=== PATIENT | female | born 1935 | race Caucasian/White ===

== ENCOUNTER 2017-06-29 11:23 | Emergency (ER) | payer MEDICARE, OTHER ==
--- NOTE | 2017-06-29 11:44 | Emergency Department Record ---
History of Present Illness - General Chief complaint: Extremity Problem Stated complaint: right wrist injury Time Seen by Provider: 06/29/17 11:37 Source: Patient Mode of Arrival: Ambulatory Limitations: No limitations - History of Present Illness Initial comments: pt fell on an outstretched hand injuring r wrist Complaint: Extremity pain Onset/Timin -: Minutes(s) Location: Right, Other History of Same: No Radiation: Distal Severity scale (1-10): 10 Quality: Aching Consistency: Constant Improves with: Nothing Worsens with: Other Associated Symptoms: Denies other symptoms - Related Data Home Medications Medication Instructions Recorded Confirmed Last Taken Aspirin [Aspir-Low] 81 mg PO DAILY 06/29/17 06/29/17 Unknown Calcium Carbonate/Vitamin D3 1 each PO DAILY 06/29/17 06/29/17 Unknown [Calcium 500 + Vit D3 400 Tab] Cholecalciferol (Vitamin D3) 1,000 unit PO DAILY 06/29/17 06/29/17 Unknown [Vitamin D3] Diltiazem HCl [Diltiazem 24Hr Cd] 240 mg PO DAILY 06/29/17 06/29/17 Unknown Hydrochlorothiazide 25 mg PO DAILY 06/29/17 06/29/17 Unknown Levothyroxine Sodium 75 mcg PO DAILY 06/29/17 06/29/17 Unknown Allergies Allergy/AdvReac Type Severity Reaction Status Date / Time meperidine [MEPERIDINE] Allergy Unknown ITCHING Unverified 06/29/17 11:32 Penicillins [PENICILLINS] Allergy Unknown ITCHING Unverified 06/29/17 11:32 Travel Screening - Travel/Exposure Within Last 30 Days Have you traveled within the last 30 days?: No Review of Systems Reviewed: No additional complaints except as noted below Constitutional: Reports: As per HPI. Denies: Chills, Fever, Malaise, Night sweats, Weakness, Weight change Eyes: Reports: As per HPI. Denies: Eye discharge, Eye pain, Photophobia, Vision change ENT: Reports: As per HPI. Denies: Congestion, Dental pain, Ear pain, Epistaxis , Hearing loss, Throat pain Respiratory: Reports: As per HPI. Denies: Cough, Dyspnea, Hemoptysis, Stridor, Wheezes Cardiovascular: Reports: As per HPI. Denies: Arrhythmia, Chest pain, Dyspnea on exertion, Edema, Murmurs, Orthopnea, Palpitations, Paroxysmal nocturnal dyspnea, Rheumatic Fever, Syncope Endocrine: Reports: As per HPI. Denies: Fatigue, Heat or cold intolerance, Polydipsia, Polyuria Gastrointestinal: Reports: As per HPI. Denies: Abdominal pain, Constipation, Diarrhea, Hematemesis, Hematochezia, Melena, Nausea, Vomiting Genitourinary: Reports: As per HPI. Denies: Abnormal menses, Discharge, Dyspareunia, Dysuria, Frequency, Hematuria, Incontinence, Retention, Urgency Musculoskeletal: Reports: As per HPI, Joint swelling. Denies: Arthralgia, Back pain, Gout, Myalgia, Neck pain Skin: Reports: As per HPI. Denies: Bruising, Change in color, Change in hair/ nails, Lesions, Pruritus, Rash Neurological: Reports: As per HPI. Denies: Abnormal gait, Confusion, Headache, Numbness, Paresthesias, Seizure, Tingling, Tremors, Vertigo, Weakness Psychiatric: Reports: As per HPI. Denies: Anxiety, Auditory hallucinations, Depression, Homicidal thoughts, Suicidal thoughts, Visual hallucinations Hematological/Lymphatic: Reports: As per HPI. Denies: Anemia, Blood Clots, Easy bleeding, Easy bruising, Swollen glands Past Medical History - SOCIAL HISTORY Smoking Status: Never smoker Alcohol Use: None Drug Use: None - RESPIRATORY Hx Respiratory Disorders: No - CARDIOVASCULAR Hx Cardio Disorders: Yes Hx Hypertension: Yes - NEURO Hx Neuro Disorders: No - GI Hx GI Disorders: No - Hx Genitourinary Disorders: No - ENDOCRINE Hx Endocrine Disorders: Yes Hx Thyroid Disease: Yes - MUSCULOSKELETAL Hx Musculoskeletal Disorders: No - PSYCH Hx Psych Problems: No - HEMATOLOGY/ONCOLOGY Hx Hematology/Oncology Disorders: No Family Medical History Any Significant Family History?: No Physical Exam - General General Appearance: Alert, Oriented x3, Cooperative, Mild distress - Head Head exam: Normal inspection - Eye Eye exam: Normal appearance, PERRL, EOMI Pupils: Normal accommodation - ENT ENT exam: Normal exam, Mucous membranes moist, Normal external ear exam, Normal orophraynx Ear exam: Normal external inspection. negative: External canal tenderness Nasal Exam: Normal inspection. negative: Discharge, Sinus tenderness Mouth exam: Normal external inspection, Tongue normal Teeth exam: Normal inspection. negative: Dental caries Throat exam: Normal inspection. negative: Tonsillar erythema, Tonsillar exudate - Neck Neck exam: Normal inspection, Full ROM. negative: Tenderness - Respiratory Respiratory exam: Normal lung sounds bilaterally. negative: Respiratory distress - Cardiovascular Cardiovascular Exam: Regular rate, Normal rhythm, Normal heart sounds - GI/Abdominal GI/Abdominal exam: Soft, Normal bowel sounds. negative: Tenderness - Rectal Rectal exam: Deferred - exam: Deferred - Extremities Extremities exam: Full ROM, Normal capillary refill, Tenderness Image of Hand: 1 - bony deformity - Back Back exam: Reports: Normal inspection, Full ROM. Denies: Muscle spasm, Rash noted, Tenderness - Neurological Neurological exam: Alert, Normal gait, Oriented X3, Reflexes normal - Psychiatric Psychiatric exam: Normal affect, Normal mood - Skin Skin exam: Dry, Intact, Normal color, Warm Course Vital Signs 06/29/17 11:25 Temperature 97.3 F L Pulse Rate 89 Respiratory 16 Rate Blood Pressure 152/88 Pulse Ox 98 dr\\\ - Reevaluation(s) Reevaluation #1: 06/29/17 13:08 d/w dr weathers who requested pt be transferred Disposition Disposition: Transfer Clinical Impression: Colles' fracture Qualifiers: Encounter type: initial encounter Fracture type: closed Laterality: right Qualified Code(s): S52.531A - Colles' fracture of right radius, initial encounter for closed fracture Transfer To: [facility] Reason For Transfer: colles fx that needs reduction Accepting Physician: dr pritchett Time Discussed w/Accepting Physician: 13:09 Forms: Patient Portal Access Quality - Quality Measures Quality Measures: N/A - Blood Pressure Screening Does Patient Have Any of the Following: No Blood Pressure Classification: Pre-Hypertensive BP Reading Systolic Measurement: 152 Diastolic Measurement: 88 Screening for High Blood Pressure: < Pre-Hypertensive BP, F/U Documented > [ [id number]] Pre-Hypertensive Follow-up Interventions: Follow-up with rescreen every year.
[2017-06-29] MEDS ORDERED: ACETAMINOPHEN 500 MG TABLET PO ONE (12:26)
--- NOTE | 2017-06-29 15:14 | RADIOLOGY REPORT ---
EXAM: RIGHT WRIST HISTORY: PATIENT FELL ON OUTSTRETCHED HAND TODAY WITH RIGHT WRIST PAIN. TECHNIQUE: Three views of the right wrist were obtained. Comparison: No prior right wrist series. Encounter: Initial. FINDINGS: There is a fracture of the distal radius with dorsal angulation of the major distal fracture fragment and also some dorsal as well as proximal displacement of the distal fracture fragment. There is resulting dorsal location of the carpus relative to the long axis of the forearm. No definite associated ulnar fracture identified. Diffuse osteopenia consistent with osteoporosis. Degenerative arthritis along the radial aspect of the wrist. Some soft tissue swelling about the wrist particularly dorsally. IMPRESSION: 1. FRACTURE OF THE DISTAL RADIUS WITH DORSAL DISPLACEMENT AND ANGULATION DESCRIBED ABOVE. 2. OSTEOPOROSIS. 3. SOFT TISSUE SWELLING. 4. DEGENERATIVE ARTHRITIS ALONG THE RADIAL ASPECT OF THE WRIST. JOB NUMBER: [id number] MTDD
== END 2017-06-29 13:15 | disposition short-term general hospital (02) ==
LOC: ER 11:23
DX: S52.531A Colles' fracture of right radius, initial encounter for closed fracture (principal); I10 Essential (primary) hypertension; W00.0XXA Fall on same level due to ice and snow, initial encounter
CPT/HCPCS: 99284